=== PATIENT | female | born 1985 | race Caucasian/White ===

== ENCOUNTER → 2018-11-19 | Outpatient (CLI) | payer OTHER | LOC: BMCIMAGING 12:18 | PROVIDERS: ATTEND Family Medicine | DX: R19.8 Other specified symptoms and signs involving the digestive system and abdomen (principal); R10.11 Right upper quadrant pain; K59.00 Constipation, unspecified ==

== ENCOUNTER → 2018-11-20 | Outpatient (CLI) | payer OTHER | LOC: FIMAGING 07:09 | PROVIDERS: ATTEND Family Medicine | DX: K59.00 Constipation, unspecified (principal); R19.7 Diarrhea, unspecified; R10.11 Right upper quadrant pain ==